=== PATIENT | male | born 1970 | race Caucasian/White ===

== ENCOUNTER 2020-11-01 11:39 | Emergency (ER) | payer SELFPAY ==
[~2020-11-01] VITALS: Ht 177.8 cm; Wt 99.8 kg
[~2020-11-01 11:39] MED LIST: Percocet 5-3251 EACH PO
== END 2020-11-01 14:16 | disposition left against medical advice (07) ==
LOC: ER 11:39
DX: S01.311A Laceration without foreign body of right ear, initial encounter (principal); Y99.0 Civilian activity done for income or pay; Z53.21 Procedure and treatment not carried out due to patient leaving prior to being seen by health care provider; W26.8XXA Contact with other sharp object(s), not elsewhere classified, initial encounter
CPT/HCPCS: 99281